=== PATIENT | male | born 1965 | race Caucasian/White ===

== ENCOUNTER 2018-05-06 07:36 | Day surgery (SDC) | payer BC ==
[~2018-05-06 07:36] MED LIST: PROPOFOL 200 MG/20 ML VIAL As Ordered
[2018-05-06] MEDS: NS 1,000 ML IV (08:00)
[2018-05-06] MEDS ORDERED: LIDOCAINE 2% INJ 100 MG/5 ML SDV (FOR ANES.) As Ordered (08:20)
[2018-05-06] MEDS ORDERED: PROPOFOL 200 MG/20 ML VIAL As Ordered ×2 (09:16→09:41)
== END 2018-05-06 10:21 | disposition home or self-care (01) ==
LOC: M OPP 07:36
DX: Z12.11 Encounter for screening for malignant neoplasm of colon (principal); K63.5 Polyp of colon; K57.30 Diverticulosis of large intestine without perforation or abscess without bleeding; K64.9 Unspecified hemorrhoids; M12.9 Arthropathy, unspecified; I10 Essential (primary) hypertension; E78.5 Hyperlipidemia, unspecified; Z88.2 Allergy status to sulfonamides; Z79.899 Other long term (current) drug therapy
CPT/HCPCS: 45385

== ENCOUNTER 2021-07-18 08:46 | Day surgery (SDC) | payer BC ==
[~2021-07-18] VITALS: Ht 170.2 cm; Wt 113.4 kg
[~2021-07-18 08:46] MED LIST changes: +CRES40TA PO; +FLOM0.4C39 PO; +LISI5TAB11 PO; +NS 1,000 ML IV ONE; -PROPOFOL 200 MG/20 ML VIAL As Ordered; +ZETI10TA16 PO; +propofoL 200 MG/20 ML VIAL As Ordered ONE
[2021-07-18] MEDS ORDERED: ONDANSETRON 4MG/2ML VIAL As Ordered ONE (10:13)
[2021-07-18] MEDS ORDERED: propofoL 200 MG/20 ML VIAL As Ordered ONE (10:55)
[2021-07-18 11:25] VITALS: BP 123/73
[2021-07-18] MEDS ORDERED: LIDOCAINE 2% 100MG/5ML SDV (FOR ANES.) As Ordered ONE (12:44)
== END 2021-07-18 11:39 | disposition home or self-care (01) ==
LOC: M OPP 08:46
PROVIDERS: ATTEND Internal Medicine Gastroenterology
DX: Z12.11 Encounter for screening for malignant neoplasm of colon (principal); Z86.010 Personal history of colon polyps; K63.5 Polyp of colon; K57.30 Diverticulosis of large intestine without perforation or abscess without bleeding; K64.8 Other hemorrhoids; Q42.8 Congenital absence, atresia and stenosis of other parts of large intestine; Z79.899 Other long term (current) drug therapy; Z88.2 Allergy status to sulfonamides
CPT/HCPCS: 45385; 88305; J2405

== ENCOUNTER → 2021-11-19 | Outpatient (CLI) | payer BC ==
[~2021-11-19] MED LIST changes: -NS 1,000 ML IV ONE; +PROHANCE 279.3MG/ML 15ML VIAL As Ordered ONE; +PROHANCE 279.3MG/ML 5ML VIAL As Ordered ONE; -propofoL 200 MG/20 ML VIAL As Ordered ONE
== END ==
LOC: M RAD 14:55
PROVIDERS: ATTEND Physician Assistant
DX: R97.20 Elevated prostate specific antigen [PSA] (principal); N40.0 Benign prostatic hyperplasia without lower urinary tract symptoms; N42.89 Other specified disorders of prostate
CPT/HCPCS: 72197; A9576